=== PATIENT | female | born 1945 | race American Indian/Alaskan Native ===

== ENCOUNTER 2019-01-27 08:48 | Outpatient (CLI) | payer MEDICARE | END 2019-01-27 08:49 | disposition home or self-care (01) | LOC: C.LAB 08:48 ==

== ENCOUNTER 2019-01-30 13:33 | Outpatient (CLI) | payer MEDICARE | END 2019-01-30 13:34 | disposition home or self-care (01) | LOC: C.CTH 13:33 | DX: I73.9 Peripheral vascular disease, unspecified (principal) ==